=== PATIENT | male | born 1970 | race Asian ===

== ENCOUNTER 2022-08-14 09:15 | Emergency (ER) | payer BC ==
[~2022-08-14] VITALS: Ht 167.6 cm; Wt 72.7 kg
[2022-08-14] MEDS ORDERED: INSULIN SQ (09:26)
[2022-08-14 09:30] VITALS: BP 138/68
[2022-08-14 09:35] LABS: COVID AG,FIA SOURCE NASAL SWAB
[2022-08-14 09:56] LABS: INFLUENZA TYPE A NEGATIVE FOR TYPE A (NEGATIVE); INFLUENZA TYPE B NEGATIVE FOR TYPE B (NEGATIVE)
[2022-08-14] MEDS ORDERED: BENZ-227 PO (10:54)
[2022-08-14] MEDS ORDERED: BENZONATATE 100 MG CAPSULE PO ONE (11:00)
== END 2022-08-14 11:06 | disposition home or self-care (01) ==
LOC: EMS 09:19
DX: R05.9 Cough, unspecified (principal); E11.9 Type 2 diabetes mellitus without complications; Z98.890 Other specified postprocedural states; Z20.822 Contact with and (suspected) exposure to COVID-19
CPT/HCPCS: 71046; 87804; 99284

== ENCOUNTER 2022-08-16 10:30 | Emergency (ER) | payer BC ==
[~2022-08-16] VITALS: Ht 167.6 cm; Wt 72.7 kg
[~2022-08-16 10:30] MED LIST: BENZ-227 PO; INSULIN SQ
[2022-08-16 11:49] VITALS: BP 120/62
[2022-08-16] MEDS ORDERED: BENZ1LOZ77 PO (12:57)
[2022-08-16] MEDS ORDERED: BENZ-227 PO (12:57)
== END 2022-08-16 13:10 | disposition home or self-care (01) ==
LOC: EMS 10:47
DX: R05.9 Cough, unspecified (principal); J02.9 Acute pharyngitis, unspecified; Z98.890 Other specified postprocedural states
CPT/HCPCS: 71046; 82962; 99283